=== PATIENT | female | born 1970 | race Caucasian/White ===

== ENCOUNTER 2018-09-09 22:55 | Emergency (ER) | payer OTHER, SELFPAY ==
[2018-09-09 23:06] VITALS: BP 192/105; PULSE 92; RESP 22; TEMP 36.7; O2SAT 98; BMI 42.9
[2018-09-09] MEDS: KETOROLAC 60 MG/2 ML VIAL IM (23:25)
[2018-09-10] MEDS: CYCLOBENZAPRINE 10 MG PREPACK 1 BOTTLE MISC (01:08)
[2018-09-10 01:09] VITALS: BP 164/82; PULSE 88; RESP 16; O2SAT 98
--- NOTE | 2018-09-11 02:36 | ED.BACK ---
HPI - Back Pain/Injury General Chief Complaint: Back Pain/Injury Stated Complaint: BACK PAIN Time Seen by Provider: 09/09/18 23:02 Source: patient and family Mode of arrival: ambulatory Limitations: no limitations History of Present Illness HPI Narrative: 48-year-old female, nonsmoker presents with in the chief complaint of severe lumbar pain with radiation to her right lateral thigh. She denies any specific injury and states she has no history of back pain. She denies significant trauma nor fever or chills. She has had no trouble controlling bowel or bladder. She denies the use of IV drugs. Patient's pain is worse with motion and improves MD Complaint: back pain Onset (ago): hour(s) Duration: constant Similar Symptoms Previously: No Location: lumbar spine Severity: moderate Quality: burning and sharp Radiation: none Relieving factors: immobilization Exacerbating factors: movement Associated symptoms: denies other symptoms Related Data Previous Rx's Medication Instructions Recorded prednisone 20 mg tablet See Label Instructions PO .COMPLEX 03/16/18 #8 tab cyclobenzaprine 10 mg PO TID PRN #14 tab 09/10/18 ketorolac 10 mg PO Q6H PRN #14 tab 09/10/18 prednisone 20 mg PO DAILY #5 tab 09/10/18 Allergies Allergy/AdvReac Type Severity Reaction Status Date / Time No Known Drug Allergies Allergy Verified 09/09/18 23:09 Review of Systems Review of Systems All systems reviewed & are unremarkable except as noted in HPI and below Constitutional Denies chills, Denies fever(s), Denies lethargy and Denies weakness Eyes Denies change in vision, Denies eye discharge, Denies irritation and Denies loss of vision ENT Ears, Nose, Mouth, and Throat: Denies change in voice, Denies neck pain and Denies sore throat Cardiovascular Denies chest pain, Denies irregular heart rhythm, Denies lightheadedness, Denies palpitations, Denies dyspnea, Denies dyspnea on exertion and Denies orthopnea Respiratory Denies cough, Denies dyspnea, Denies dyspnea on exertion and Denies wheezing Gastrointestinal Gastrointestinal: Denies abdominal pain, Denies change in bowel habits, Denies diarrhea, Denies nausea and Denies vomiting Genitourinary Denies hematuria, Denies flank pain, Denies urinary incontinence and Denies urinary urgency Musculoskeletal Reports back pain and Denies neck pain Integumentary/Breasts Denies pruritus, Denies erythema, Denies rash and Denies wounds Neurologic Denies confusion, Denies loss of vision and Denies weakness Psychiatric Denies anxiety, Denies confusion, Denies depression, Denies homicidal ideation and Denies suicidal ideation Endocrine Denies palpitations Hematologic/Lymphatic Denies easy bruising Allergic/Immunologic Denies wheezing [facility] Medical History Menopausal syndrome (Chronic) Surgical History Status post delivery Social History Smoking Status: Never smoker Exam Narrative Exam Narrative: GENERAL: This is a well-nourished, well-developed patient, in mild distress. HEAD: 48-year-old female, obviously in significant pain, clutching her right lower back EYES: Pupils equal round and reactive. Extraocular motions intact. No scleral icterus. No injection or drainage. ENT: Nose without bleeding, purulent drainage or septal hematoma. Throat without erythema, tonsillar hypertrophy or exudate. Uvula midline. Airway patent. NECK: Trachea midline. No JVD or lymphadenopathy. Supple, nontender, no meningeal signs. CARDIOVASCULAR: Regular rate and rhythm without murmurs, gallops, or rubs. RESPIRATORY: Clear to auscultation. Breath sounds equal bilaterally. No wheezes, rales, or rhonchi. GASTROINTESTINAL: Abdomen soft, non-tender, nondistended. No hepato-splenomegaly, or palpable masses. No guarding. EXTREMITIES: No clubbing, cyanosis, or edema. No joint tenderness, effusion, or edema noted. NEURO: AOx3. SKIN: No rash or erythema. BACK: exhaust tender but free of any obvious external abnormalities. Patient exam notes decreased range of motion and muscle spasm, but no CVA tenderness, or vertebral point tenderness. There are no symptoms of cauda equina such as saddle anesthesia, and decreased reflexes, decreased sensation or strength. Initial Vital Signs Initial Vital Signs: Vital Signs Temperature 98.0 F 09/09/18 23:06 Pulse Rate 92 H 09/09/18 23:06 Respiratory Rate 22 09/09/18 23:06 Blood Pressure 192/105 H 09/09/18 23:06 Pulse Oximetry 98 09/09/18 23:06 Course Orders Ordered: Discontinued Medications Cyclobenzaprine HCl (Flexeril 10 Mg Prepack) 1 bottle MISC SEEINSTR ONE Stop: 09/10/18 00:50 Last Admin: 09/10/18 01:08 Dose: 1 bottle Ketorolac Tromethamine (Toradol) 60 mg IM NOW ONE Stop: 09/09/18 23:19 Last Admin: 09/09/18 23:25 Dose: 60 mg Discharge Plan Departure Patient Disposition: Home Clinical Impression: Acute lumbar radiculopathy Discharge Date/Time: 09/10/18 01:14 Interventions: ED Discharge Assessment Last Done: 09/10/18 01:09 Instructions: DI for Lumbar Radiculopathy Activity Restrictions/Additional Instructions: *You have been diagnosed with [ acute lumbar radiculopathy ] *What to do: *Take medications as directed: Prescriptions have an electronically transmitted to [facility] at your request *Follow up with your primary care provider in 2-3 days, call for an appointment. Let them know you were seen in the Emergency Department and that we ask that you be seen in follow up *Return to ER if you should have any new, worsening or concerning symptoms Prescriptions: New cyclobenzaprine 10 mg tablet 10 mg PO TID PRN (Reason: muscle spasm) Qty: 14 RF: 0 prednisone 20 mg tablet 20 mg PO DAILY Qty: 5 RF: 0 ketorolac 10 mg tablet 10 mg PO Q6H PRN (Reason: pain) Qty: 14 RF: 0 No Action prednisone 20 mg tablet See Label Instructions PO .COMPLEX Qty: 8 RF: 0
--- NOTE | 2018-09-11 02:39 | ED_ITS ---
HPI - Back Pain/Injury General Chief Complaint: Back Pain/Injury Stated Complaint: BACK PAIN Time Seen by Provider: 09/09/18 23:02 Source: patient and family Mode of arrival: ambulatory Limitations: no limitations History of Present Illness HPI Narrative: 48-year-old female, nonsmoker presents with in the chief complaint of severe lumbar pain with radiation to her right lateral thigh. She denies any specific injury and states she has no history of back pain. She denies significant trauma nor fever or chills. She has had no trouble controlling bowel or bladder. She denies the use of IV drugs. Patient's pain is worse with motion and improves MD Complaint: back pain Onset (ago): hour(s) Duration: constant Similar Symptoms Previously: No Location: lumbar spine Severity: moderate Quality: burning and sharp Radiation: none Relieving factors: immobilization Exacerbating factors: movement Associated symptoms: denies other symptoms Related Data Previous Rx's Medication Instructions Recorded prednisone 20 mg tablet See Label Instructions PO .COMPLEX 03/16/18 #8 tab cyclobenzaprine 10 mg PO TID PRN #14 tab 09/10/18 ketorolac 10 mg PO Q6H PRN #14 tab 09/10/18 prednisone 20 mg PO DAILY #5 tab 09/10/18 Allergies Allergy/AdvReac Type Severity Reaction Status Date / Time No Known Drug Allergies Allergy Verified 09/09/18 23:09 Review of Systems Review of Systems All systems reviewed & are unremarkable except as noted in HPI and below Constitutional Denies chills, Denies fever(s), Denies lethargy and Denies weakness Eyes Denies change in vision, Denies eye discharge, Denies irritation and Denies loss of vision ENT Ears, Nose, Mouth, and Throat: Denies change in voice, Denies neck pain and Denies sore throat Cardiovascular Denies chest pain, Denies irregular heart rhythm, Denies lightheadedness, Denies palpitations, Denies dyspnea, Denies dyspnea on exertion and Denies orthopnea Respiratory Denies cough, Denies dyspnea, Denies dyspnea on exertion and Denies wheezing Gastrointestinal Gastrointestinal: Denies abdominal pain, Denies change in bowel habits, Denies diarrhea, Denies nausea and Denies vomiting Genitourinary Denies hematuria, Denies flank pain, Denies urinary incontinence and Denies urinary urgency Musculoskeletal Reports back pain and Denies neck pain Integumentary/Breasts Denies pruritus, Denies erythema, Denies rash and Denies wounds Neurologic Denies confusion, Denies loss of vision and Denies weakness Psychiatric Denies anxiety, Denies confusion, Denies depression, Denies homicidal ideation and Denies suicidal ideation Endocrine Denies palpitations Hematologic/Lymphatic Denies easy bruising Allergic/Immunologic Denies wheezing [facility] Medical History Menopausal syndrome (Chronic) Surgical History Status post delivery Social History Smoking Status: Never smoker Exam Narrative Exam Narrative: GENERAL: This is a well-nourished, well-developed patient, in mild distress. HEAD: 48-year-old female, obviously in significant pain, clutching her right lower back EYES: Pupils equal round and reactive. Extraocular motions intact. No scleral icterus. No injection or drainage. ENT: Nose without bleeding, purulent drainage or septal hematoma. Throat without erythema, tonsillar hypertrophy or exudate. Uvula midline. Airway patent. NECK: Trachea midline. No JVD or lymphadenopathy. Supple, nontender, no meningeal signs. CARDIOVASCULAR: Regular rate and rhythm without murmurs, gallops, or rubs. RESPIRATORY: Clear to auscultation. Breath sounds equal bilaterally. No wheezes , rales, or rhonchi. GASTROINTESTINAL: Abdomen soft, non-tender, nondistended. No hepato-splenomegaly , or palpable masses. No guarding. EXTREMITIES: No clubbing, cyanosis, or edema. No joint tenderness, effusion, or edema noted. NEURO: AOx3. SKIN: No rash or erythema. BACK: fish cleaner machine tender but free of any obvious external abnormalities. Patient exam notes decreased range of motion and muscle spasm, but no CVA tenderness, or vertebral point tenderness. There are no symptoms of cauda equina such as saddle anesthesia, and decreased reflexes, decreased sensation or strength. Initial Vital Signs Initial Vital Signs: Vital Signs Temperature 98.0 F 09/09/18 23:06 Pulse Rate 92 H 09/09/18 23:06 Respiratory Rate 22 09/09/18 23:06 Blood Pressure 192/105 H 09/09/18 23:06 Pulse Oximetry 98 09/09/18 23:06 Course Orders Ordered: Discontinued Medications Cyclobenzaprine HCl (Flexeril 10 Mg Prepack) 1 bottle MISC SEEINSTR ONE Stop: 09/10/18 00:50 Last Admin: 09/10/18 01:08 Dose: 1 bottle Ketorolac Tromethamine (Toradol) 60 mg IM NOW ONE Stop: 09/09/18 23:19 Last Admin: 09/09/18 23:25 Dose: 60 mg Discharge Plan Departure Patient Disposition: Home Clinical Impression: Acute lumbar radiculopathy Discharge Date/Time: 09/10/18 01:14 Interventions: ED Discharge Assessment Last Done: 09/10/18 01:09 Instructions: DI for Lumbar Radiculopathy Activity Restrictions/Additional Instructions: *You have been diagnosed with [ acute lumbar radiculopathy ] *What to do: *Take medications as directed: Prescriptions have an electronically transmitted to [facility] at your request *Follow up with your primary care provider in 2-3 days, call for an appointment. Let them know you were seen in the Emergency Department and that we ask that you be seen in follow up *Return to ER if you should have any new, worsening or concerning symptoms Prescriptions: New cyclobenzaprine 10 mg tablet 10 mg PO TID PRN (Reason: muscle spasm) Qty: 14 RF: 0 prednisone 20 mg tablet 20 mg PO DAILY Qty: 5 RF: 0 ketorolac 10 mg tablet 10 mg PO Q6H PRN (Reason: pain) Qty: 14 RF: 0 No Action prednisone 20 mg tablet See Label Instructions PO .COMPLEX Qty: 8 RF: 0
== END 2018-09-10 01:14 | disposition home or self-care (01) ==
PROVIDERS: Emergency Provider Emergency Medicine; Family Provider Internal Medicine; PCP Internal Medicine
DX: M54.16 Radiculopathy, lumbar region (principal)
CPT/HCPCS: 96372; 99282; 99283; J1885

== ENCOUNTER → 2018-12-26 07:28 | Outpatient (CLI) | payer OTHER, SELFPAY ==
[2018-12-26 10:10] LABS: Alanine Aminotransferase 36 IU/L (9-52); Albumin 4.2 g/dL (3.5-5.0); Albumin Globulin Ratio 1.3 (1.0-2.8); Alkaline Phosphatase 68 U/L (38-126); Aspartate Aminotransferase 26 IU/L (14-36); BUN Creatinine Ratio 18.6 (6-22); Bilirubin Total 1.5 mg/dL (0.2-1.3); Blood Urea Nitrogen 13 mg/dL (7-17); Calcium 8.9 mg/dL (8.4-10.2); Carbon Dioxide 21 mmol/L (22-32); Chloride 103 mmol/L (98-107); Cholesterol 182 mg/dL (140-199); Estimated Glomerular Filt Rate > 60.0 mL/min (>60); Globulin 3.3 g/dL (1.7-4.1); Glucose 86 mg/dL (70-100); HDL Cholesterol 52 mg/dL (40-60); HEMOLYSIS 23 (0-50); LDL Cholesterol Calculated 115 mg/dL (<100); Potassium 3.7 mmol/L (3.4-5.1); Sodium 137 mmol/L (137-145); Total Protein 7.5 g/dL (6.3-8.2); Triglycerides 77 mg/dL (35-150)
[2018-12-26 10:29] LABS: TSH w/ Reflex to FT4 2.36 uIU/mL (0.47-4.68)
== END ==
PROVIDERS: Family Provider Internal Medicine; PCP Internal Medicine; Visit Provider Internal Medicine
DX: I10 Essential (primary) hypertension (principal)
CPT/HCPCS: 36415; 80053; 80061; 84443

== ENCOUNTER → 2018-12-27 10:51 | Outpatient (CLI) | payer OTHER, SELFPAY ==
--- NOTE | 2018-12-27 | DI.MG.S_ITS ---
BILATERAL DIGITAL SCREENING MAMMOGRAM 3D/2D WITH CAD: 12/27/2018 CLINICAL: Routine screening. Family history of breast cancer. Comparison is made to exams dated: 12/08/2017 mammogram, 11/15/2016 mammogram, 11/12/2015 mammogram, 10/31/2013 mammogram, 11/07/2013 mammogram, and 11/11/2014 mammogram - [facility]. There are scattered fibroglandular elements in both breasts. Current study was also evaluated with a Computer Aided Detection (CAD) system. No significant masses, calcifications, or other findings are seen in either breast. There has been no significant interval change. IMPRESSION: NEGATIVE There is no mammographic evidence of malignancy. A 1 year screening mammogram is recommended. This exam was interpreted at Station ID: [id number]. NOTE: For mammograms, a report in lay terms will be sent to the patient. Approximately 15% of breast malignancies will not be visualized mammographically. In the management of a palpable breast mass, a negative mammogram must not discourage biopsy of a clinically suspicious lesion. Electronically Signed By: Mart lou/annabel:12/27/2018 14:17:17 letter sent: Normal Exam ACR BI-RADS Category 1: Negative [id number]
== END ==
PROVIDERS: Family Provider Internal Medicine; PCP Internal Medicine; Visit Provider Internal Medicine
DX: Z12.31 Encounter for screening mammogram for malignant neoplasm of breast (principal); Z80.3 Family history of malignant neoplasm of breast
CPT/HCPCS: 77063; 77067

== ENCOUNTER → 2019-12-31 07:49 | Outpatient (CLI) | payer OTHER, SELFPAY ==
--- NOTE | 2019-12-31 | DI.MG.S_ITS ---
BILATERAL DIGITAL SCREENING MAMMOGRAM 3D/2D WITH CAD: 12/31/2019 CLINICAL: Family history of breast cancer. Routine screening. Comparison is made to exams dated: 12/27/2018 mammogram, 12/08/2017 mammogram, and 11/15/2016 mammogram - [facility]. There are scattered fibroglandular elements in both breasts. Current study was also evaluated with a Computer Aided Detection (CAD) system. No significant masses, calcifications, or other findings are seen in either breast. There has been no significant interval change. IMPRESSION: NEGATIVE There is no mammographic evidence of malignancy. A 1 year screening mammogram is recommended. This exam was interpreted at Station ID: [id number]. NOTE: For mammograms, a report in lay terms will be sent to the patient. Approximately 15% of breast malignancies will not be visualized mammographically. In the management of a palpable breast mass, a negative mammogram must not discourage biopsy of a clinically suspicious lesion. Electronically Signed By: Vicki garcia/annabel:12/31/2019 14:08:11 letter sent: Normal Exam ACR BI-RADS Category 1: Negative [id number]
== END ==
PROVIDERS: Family Provider Internal Medicine; PCP Internal Medicine; Referring Provider Internal Medicine; Visit Provider Internal Medicine
DX: Z12.31 Encounter for screening mammogram for malignant neoplasm of breast (principal); Z80.3 Family history of malignant neoplasm of breast
CPT/HCPCS: 77063; 77067

== ENCOUNTER 2020-02-20 06:19 | Emergency (ER) | payer OTHER, SELFPAY ==
--- NOTE | 2020-02-20 06:28 | DI.RAD.S_ITS ---
PROCEDURE: XR WRIST RT MIN 3V INDICATIONS: right wrist pain, swelling, injury TECHNIQUE: 4 views of the wrist were acquired. COMPARISON: None. FINDINGS: Bones: A chronic appearing deformity of the fifth metacarpal shaft. Marginal lucency seen at the PIP joint of the ring finger. First CMC and triscaphe joint degeneration. Marginal lucencies also seen involving the second and third metacarpal heads, potentially the fifth metacarpal head. Soft tissues: No suspicious soft tissue calcifications. IMPRESSION: No fracturee Chronic findings as above Dictated by: Joe Rachel M.D. on 02/20/2020 at 10:07 Approved by: Joe Rachel M.D. on 02/20/2020 at 10:10
[2020-02-20 06:30] VITALS: BP 150/98; PULSE 75; RESP 15; TEMP 36.3; O2SAT 95; BMI 43.4
--- NOTE | 2020-02-20 06:38 | ED_ITS ---
HPI - Extremity Problem General Chief complaint: Extremity Injury, Upper Stated complaint: right wrist/hand swelling/pain popped 2 days ago Time Seen by Provider: 02/20/20 06:20 Source: patient Mode of arrival: Ambulatory Limitations: no limitations History of Present Illness HPI Narrative: Nonsmoker with history of hypertension presents with a chief complaint of an injury to her right wrist yesterday while bending over at work and lifting heavy object. She felt a pop on the medial aspect of her wrist overlying her distal radius and extending into her thumb. She has full but painful range of motion and denies any numbness, tingling or weakness. She has no history of injury to this wrist. She denies any high velocity injury or trauma. She denies any elbow or shoulder pain MD Complaint: extremity pain Onset (ago): day(s) Related Data Previous Rx's Medication Instructions Recorded lisinopril 20 mg tablet See Rx Instructions .ROUTE 09/17/19 .COMPLEX #90 tab Allergies Allergy/AdvReac Type Severity Reaction Status Date / Time No Known Drug Allergies Allergy Verified 12/11/19 15:18 Review of Systems Constitutional Constitutional: Denies chills, Denies fatigue, Denies fever(s), Denies frequent falls, Denies lethargy and Denies weakness Eyes Eyes: Denies change in vision, Denies eye discharge, Denies irritation and Denies loss of vision ENT Ears, Nose, Mouth, and Throat: Denies change in voice, Denies dizziness, Denies neck pain, Denies sore throat and Denies throat swelling Cardiovascular Cardiovascular: Denies chest pain, Denies irregular heart rhythm, Denies lightheadedness, Denies palpitations, Denies dyspnea, Denies dyspnea on exertion and Denies orthopnea Respiratory Respiratory: Denies cough, Denies dyspnea, Denies dyspnea on exertion and Denies wheezing Gastrointestinal Gastrointestinal: Denies abdominal pain, Denies change in bowel habits, Denies diarrhea, Denies nausea and Denies vomiting Genitourinary Genitourinary: Denies hematuria, Denies flank pain, Denies urinary incontinence and Denies urinary urgency Musculoskeletal Musculoskeletal: Denies back pain, Reports limited range of motion, Denies muscle weakness, Denies neck pain, Denies numbness and Denies tingling Integumentary/Breasts Skin/Breast: Denies pruritus, Denies erythema, Denies rash and Denies wounds Neurologic Neurologic: Denies behavioral changes, Denies confusion, Denies dizziness, Denies frequent falls, Denies loss of vision, Denies numbness, Denies tingling and Denies weakness Psychiatric Psychiatric: Denies anxiety, Denies behavioral changes, Denies confusion, Denies depression, Denies homicidal ideation and Denies suicidal ideation Endocrine Endocrine: Denies fatigue, Denies flushing and Denies palpitations Hematologic/Lymphatic Hematologic/Lymphatic: Denies easy bruising Allergic/Immunologic Allergic/Immunologic: Denies urticaria, Denies throat swelling and Denies wheezing Patient History Medical History Essential hypertension (Chronic) Gilbert syndrome (Inactive) Menopausal syndrome (Chronic) Surgical History Status post delivery Social History Smoking Status: Never smoker Smoking Status: Never smoker Substance Use Type: does not use Exam Narrative Exam Narrative: GEN: AOx3 and in mild distress EYES: Pupils are equal, round, and reactive to light and accommodation. Extraoccular muscles are intact bilaterally. There is no subconjunctival hemorrhage or exudate. CHEST: Lungs are clear to auscultation bilaterally and free of wheezes, rales, or rhonchi. Heart rate is regular rhythm, there are no murmurs, clicks, rubs, or gallops. There is no chest wall tenderness. ABD: Abdomen is soft and nontender. There is no guarding or rebound. Bowel s ounds are normal in all 4 quadrants. There is no mass or organomegaly. EXT: Decreased range of motion secondary to pain of the right wrist, largely over the lateral aspect of her distal radius. No obvious deformity. This is closed, isolated and neurovascularly intact. She does have full strength and sensation with cap refill less 2 seconds. Full painless ROM of all extremities with no loss of sensation or strength. SKIN: Warm, pink, and dry. No erythema or rash Initial Vital Signs Initial Vital Signs: Vital Signs Temperature 97.4 F L 02/20/20 06:30 Pulse Rate 75 02/20/20 06:30 Respiratory Rate 15 02/20/20 06:30 Blood Pressure 150/98 H 02/20/20 06:30 Pulse Oximetry 95 05/06/20 06:30 Procedures Orthopedic Splinting/Casting Injury #1: Side: right Upper Extremity Injury Location: wrist Upper Extremity Immobilizer: wrist splint and thumb spica Post splinting neuro exam: intact Post splinting vascular exam: intact Placed by: Nursing Course Orders Ordered: ED Orders 02/20/20 06:28 XR wrist RT min 3V Stat Vital Signs Vital signs: Vital Signs - 8 hr 02/20/20 06:30 Temperature 97.4 F L Pulse Rate 75 Respiratory Rate 15 Blood Pressure 150/98 H Pulse Oximetry 95 MDM - Extremity (Nontraumatic) Imaging Data Extremity x-ray #1: Attestation: I personally reviewed and interpreted this imaging study as follows: My Impression: No Fx or dislocation Discharge Plan Departure Patient Disposition: Home Clinical Impression: Sprain and strain of wrist Instructions: DI for Wrist Sprain Activity Restrictions/Additional Instructions: *You have been diagnosed with [right wrist sprain] *What to do: *Take medications as directed *Follow up with your primary care provider in 2-3 days, call for an appointment. Let them know you were seen in the Emergency Department and that we ask that you be seen in follow up *Return to ER if you should have any new, worsening or concerning symptoms Radiographic study has been interpreted by an emergency physician. The official diagnosis by radiology will be performed within the next 24 hours and should there be any change in outcome we will notify you of how to proceed. Prescriptions: No Action lisinopril 20 mg tablet See Rx Instructions .ROUTE .COMPLEX Qty: 90 RF: 1 Referrals: Francisco Tran MD [Primary Care Provider] -
== END 2020-02-20 07:05 | disposition home or self-care (01) ==
PROVIDERS: Emergency Provider Emergency Medicine; Family Provider Internal Medicine; PCP Internal Medicine
DX: S63.501A Unspecified sprain of right wrist, initial encounter (principal); S66.911A Strain of unspecified muscle, fascia and tendon at wrist and hand level, right hand, initial encounter; X50.0XXA Overexertion from strenuous movement or load, initial encounter
CPT/HCPCS: 73110; 99282; 99283

== ENCOUNTER → 2020-08-16 08:26 | Outpatient (CLI) | payer OTHER, SELFPAY ==
--- NOTE | 2020-08-16 08:27 | DI.RAD.S_ITS ---
PROCEDURE: XR HAND LT MIN 3V INDICATIONS: L base of thumb pain post fall TECHNIQUE: 3 views of the hand(s) acquired. COMPARISON: None. FINDINGS: Bones: No definite, displaced fractures or dislocations. Mild irregularity can be seen involving the trapezium. Carpal bones are normally aligned. No suspicious bony lesions. Soft tissues: No suspicious soft tissue calcifications. IMPRESSION: No definite, displaced fractures are identified. Mild irregularity can be seen involving the trapezium. If there is focal tenderness at this site in this patient with this given history ( or other suspicion for an acute fracture not seen on these plain films) then please consider a dedicated CT study for further evaluation. Dictated by: Jorge Joseph M.D. on 08/16/2020 at 7:46 Approved by: Jorge Joseph M.D. on 08/16/2020 at 7:49
== END ==
PROVIDERS: Family Provider Internal Medicine; PCP Internal Medicine; Referring Provider Nurse Practitioner; Visit Provider Nurse Practitioner
DX: M79.642 Pain in left hand (principal)
CPT/HCPCS: 73130

== ENCOUNTER 2021-09-20 18:02 | Emergency (ER) | payer OTHER, SELFPAY ==
[2021-09-20 18:20] VITALS: BP 174/99; PULSE 85; RESP 19; TEMP 37; O2SAT 98; BMI 43.4
--- NOTE | 2021-09-20 18:26 | DI.RAD.S_ITS ---
PROCEDURE: XR ANKLE RT MIN 3V INDICATIONS: fall TECHNIQUE: 3 views of the ankle were acquired. COMPARISON: [facility], CR, FOOT 3V RIGHT, 01/21/2010, 12:49. FINDINGS: Bones: No fractures or dislocations. Again noted is surgical hardware related to 1st and 2nd toe surgeries as well as a chronic plantar metallic foreign body. Ankle mortise is normally aligned. No suspicious bony lesions. Soft tissues: No tibiotalar joint effusion. Achilles tendon appears normal. Chronic plantar metallic foreign body, present since 2009. Lateral soft tissue swelling. IMPRESSION: Lateral ankle sprain. No evidence acute bony abnormality of the right ankle. Right foot orthopedic hardware. Chronic plantar midfoot metallic foreign body. Dictated by: Kiran Berry M.D. on 09/20/2021 at 18:57 Approved by: Kiran Berry M.D. on 09/20/2021 at 18:59
--- NOTE | 2021-09-20 18:40 | DI.CT.S_ITS ---
PROCEDURE: CT LE RT WO CON INDICATIONS: ankle pain, talus injury TECHNIQUE: Noncontrast 1-1.5 mm axial sections acquired from above the tibiotalar joint to the bottom of the calcaneus, with coronal and sagittal reformats. COMPARISON: [facility], CR, XR ANKLE RT MIN 3V, 09/20/2021, 18:19. [facility], CR, FOOT 3V RIGHT, 01/21/2010, 12:49. FINDINGS: Image quality: Excellent. Bones: There is no identified acute fracture involving the talus. There is mild degenerative change present at the tibiotalar joint. Findings include subchondral cyst formation in the talus. No other acute fractures are seen. Orthopedic hardware is noted involving the proximal phalanx of the great toe as well as fusion hardware involving the 2nd toe. A metallic needle has been present in the plantar tissues at the midfoot for an extended period of time period Soft tissues: Metallic needle in the plantar tissues, a chronic finding. IMPRESSION: No evidence of acute fracture involving the talus or other ankle bone. Mild degenerative change at the ankle. Chronic foreign body in the plantar tissues of the foot. Comment: If the patient continues to have pain symptomatology, consider ankle MRI. Dictated by: Kiran Berry M.D. on 09/20/2021 at 19:23 Approved by: Kiran Berry M.D. on 09/20/2021 at 19:26
--- NOTE | 2021-09-20 20:00 | ED.LOWEXIN ---
HPI - Extremity Injury (Lower) General Chief Complaint: Extremity Injury, Lower Stated Complaint: RT ANKLE INJURY Time Seen by Provider: 09/20/21 18:14 Source: patient Mode of arrival: Family Vehicle Limitations: no limitations History of Present Illness HPI Narrative: 51-year-old female nonsmoker presents with a chief complaint of right foot and ankle pain after stepping awkwardly off the bottom stair a few days ago. She has been ambulating with an antalgic gait for the past few days and came today for evaluation to make sure there was no significant underlying injury. When she fell it was purely mechanical, she denies prodromal symptoms such as dizziness, weakness or lightheadedness. She denies any head, neck or back pain. She denies any chest pain or shortness of breath. She has pain in her ankle with ambulation and improvement with rest. She does admit to some swelling over her lateral ankle. It is closed, isolated and neurovascularly intact Related Data Previous Rx's Medication Instructions Recorded albuterol sulfate 90 mcg/actuation 2 puff INHALATION Q4-6H PRN #8.5 06/15/20 aerosol inhaler gram benzonatate 100 mg capsule 100 mg PO BID PRN #30 cap 06/15/20 (Tessalneftaly Alfaro) Allergies Allergy/AdvReac Type Severity Reaction Status Date / Time No Known Drug Allergies Allergy Verified 09/20/21 18:20 Review of Systems Review of Systems Narrative: GENERAL: Denies chills, fatigue, malaise, fever, sweats. HEENT: Denies sinus pain, ear pain, sore throat, difficulty swallowing, dizziness. RESPIRATORY: Denies dyspnea, cough, wheezing, hemoptysis, sputum. CARDIOVASCULAR: Denies chest pain, palpitations, orthopnea, edema, GASTROINTESTINAL: Denies nausea, vomiting, abdominal pain, diarrhea, constipation, melena. : Denies dysuria, frequency, incontinence, hematuria, urinary retention. MUSCULOSKELETAL: See HPI SKIN: Denies rash, skin lesions, or other NEUROLOGIC: Denies weakness, headache, numbness, change in speech, confusion, seizures, incoordination. PSYCHIATRIC: No concerning psychosocial issues. 12 point review of systems is negative except for those stated above Patient History Medical History Bronchitis Essential hypertension Gilbert syndrome Menopausal syndrome Surgical History Status post delivery Social History Smoking Status: Never smoker Smoking Status: Never smoker alcohol intake frequency: holidays/special occasions only Substance Use Type: does not use Exam Narrative Exam Narrative: GEN: AOx3 and in mild distress EYES: Pupils are equal, round, and reactive to light and accommodation. Extraoccular muscles are intact bilaterally. There is no subconjunctival hemorrhage or exudate. CHEST: Lungs are clear to auscultation bilaterally and free of wheezes, rales, or rhonchi. Heart rate is regular rhythm, there are no murmurs, clicks, rubs, or gallops. There is no chest wall tenderness. ABD: Abdomen is soft and nontender. There is no guarding or rebound. Bowel sounds are normal in all 4 quadrants. There is no mass or organomegaly. EXT: Full but painful range of motion at right ankle with swelling over the lateral malleolus. There is tenderness to palpation over the anterior ankle. No obvious, significant deformity. Closed, isolated neurovascularly intact SKIN: Warm, pink, and dry. No erythema or rash Initial Vital Signs Initial Vital Signs: Vital Signs Temperature 98.6 F 09/20/21 18:20 Pulse Rate 85 09/20/21 18:20 Respiratory Rate 19 09/20/21 18:20 Blood Pressure 174/99 H 09/20/21 18:20 Pulse Oximetry 98 09/20/21 18:20 Course Orders Ordered: ED Orders 09/20/21 18:26 XR ankle RT min 3V Stat 09/20/21 18:40 CT LE RT wo con Stat Vital Signs Vital signs: Vital Signs - 8 hr 09/20/21 18:20 Temperature 98.6 F Pulse Rate 85 Respiratory Rate 19 Blood Pressure 174/99 H Pulse Oximetry 98 MDM - Extremity Injury (Lower) Imaging Data Extremity x-ray #1: Radiologist's Impression: Anastasiia Bobby??51??F??1970 ? Allergy/Adv: No Known Drug Allergies (More??) Close Lower Extremity CT (Signed) Kiran Berry - 09/20/21 Ankle X-Ray (Signed) Kiran Berry - 09/20/21 Hand X-Ray (Signed) Jorge Joseph - 08/16/20 Wrist X-Ray (Signed) WilsonJoe - 02/20/20 Mammogram Screening (Signed) Vicki Murillo - 12/31/19 Mammogram Screening (Addendum) Mart Donnelly - 12/27/18 Launch?[address] [address] XRay Report Signed Patient: Anastasiia Bobby MR#: [id number] : 1970 Acct:[id number] Age/Sex: 51 / F Date of Service: 09/20/21 Loc: ED Accession Number: [id number] ?? Procedure: XR ankle RT min 3V Ordering Provider: Rajiv Garcia D.O. PROCEDURE:? XR ANKLE RT MIN 3V ? INDICATIONS:? fall ? TECHNIQUE:? 3 views of the ankle were acquired.? ? COMPARISON:[facility], , FOOT 3V RIGHT, 01/21/2010, 12:49. ? FINDINGS:? ? Bones:? No fractures or dislocations.? Again noted is surgical hardware related to 1st and 2nd toe surgeries as well as a chronic plantar metallic foreign body.? Ankle mortise is normally aligned.? No suspicious bony lesions.? ? Soft tissues:? No tibiotalar joint effusion.? Achilles tendon appears normal.? Chronic plantar metallic foreign body, present since 2009. Lateral soft tissue swelling. ? ? IMPRESSION:? Lateral ankle sprain.? No evidence acute bony abnormality of the right ankle.? Right foot orthopedic hardware.? Chronic plantar midfoot metallic foreign body. ? Dictated by: Kiran Berry M.D. on 09/20/2021 at 18:57 ? ? Approved by: Kiran Berry M.D. on 09/20/2021 at 18:59? CT LE: Radiologist's Impression: Launch?[address] [address] [address] Scan Report Signed Patient: Anastasiia Bobby MR#: [id number] : 1970 Acct:[id number] Age/Sex: 51 / F Date of Service: 09/20/21 Loc: ED Accession Number: [id number] ?? Procedure: CT LE RT wo con Ordering Provider: Rajiv Garcia D.O. PROCEDURE:? CT LE RT WO CON ? INDICATIONS:? ankle pain, talus injury ? TECHNIQUE:? Noncontrast 1-1.5 mm axial sections acquired from above the tibiotalar joint to the bottom of the calcaneus, with coronal and sagittal reformats.? ? COMPARISON:? [facility], CR, XR ANKLE RT MIN 3V, 09/20/2021, 18:19.? [facility], CR, FOOT 3V RIGHT, 01/21/2010, 12:49. ? FINDINGS:? Image quality:? Excellent.? ? Bones:? There is no identified acute fracture involving the talus.? There is mild degenerative change present at the tibiotalar joint.? Findings include subchondral cyst formation in the talus.? No other acute fractures are seen.? Orthopedic hardware is noted involving the proximal phalanx of the great toe as well as fusion hardware involving the 2nd toe.? A metallic needle has been present in the plantar tissues at the midfoot for an extended period of time period ? Soft tissues:? Metallic needle in the plantar tissues, a chronic finding. ? IMPRESSION:? No evidence of acute fracture involving the talus or other ankle bone.? Mild degenerative change at the ankle.? Chronic foreign body in the plantar tissues of the foot. ? Comment:? If the patient continues to have pain symptomatology, consider ankle MRI. ? ? Dictated by: Kiran Berry M.D. on 09/20/2021 at 19:23 ? ? Approved by: Kiran Berry M.D. on 09/20/2021 at 19:26 ? MDM Narrative Medical decision making narrative: Patient has reassuring history and physical exam. Continues to have antalgic gait and swelling over lateral ankle after a fall a few days ago. X-ray read as normal but questionable cortical irregularity of talus along with presence of hardware in her foot required CT scan for further evaluation. Thankfully, this was unremarkable no fracture or dislocation noted. Pain is well controlled, return precautions given and questions answered to her apparent satisfaction Discharge Plan Departure Patient Disposition: Home Clinical Impression: Ankle sprain Instructions: Ankle Sprain Activity Restrictions/Additional Instructions: *You have been diagnosed with [right ankle sprain, x-ray and CT scan are very reassuring and have no evidence to suggest fracture or dislocation. *What to do: *Please continue to take your regular medications as directed. [ ] New medication prescriptions sent to your pharmacy: [ ] [ ] New medication written as a paper prescription [x ] No new medications given *Please follow up with your primary care provider in 2-3 days, call for an appointment. Let them know you were seen in the Emergency Department and that we ask that you be seen in follow up. We will electronically transmit a record of today's note if your PCP is in our system *If you do not have a primary care provider please contact the [facility] Resource line at [phone]. They will ask some questions about your medical history and help get you set up with a doctor in the community. *Return to Emergency Department if you should have any new, worsening or concerning symptoms, such as [fever greater than 101 F, shaking chills, worsening pain, persistent vomiting or other bothersome symptoms] Prescriptions: No Action benzonatate [Tessalon Perles] 100 mg capsule 100 mg PO BID PRN (Reason: cough) Qty: 30 0RF albuterol sulfate 90 mcg/actuation HFA aerosol inhaler 2 puff INHALATION Q4-6H PRN (Reason: bronchospasm) Qty: 8.5 0RF Referrals: Francisco Tran MD [Primary Care Provider] -
== END 2021-09-20 20:15 | disposition home or self-care (01) ==
PROVIDERS: Emergency Provider Emergency Medicine; Family Provider Internal Medicine; PCP Internal Medicine
DX: S93.401A Sprain of unspecified ligament of right ankle, initial encounter (principal); X50.1XXA Overexertion from prolonged static or awkward postures, initial encounter
CPT/HCPCS: 73610; 73700; 99283; 99284

== ENCOUNTER → 2022-02-12 11:13 | Outpatient (CLI) | payer OTHER, SELFPAY ==
--- NOTE | 2022-02-12 11:16 | DI.MG.S_ITS ---
BILATERAL DIGITAL SCREENING MAMMOGRAM 3D/2D WITH CAD: 02/12/2022 CLINICAL: Routine screening. Family history of breast cancer. Comparison is made to exams dated: 12/31/2019 mammogram, 12/27/2018 mammogram, and 12/08/2017 mammogram - [facility]. There are scattered fibroglandular elements in both breasts. Current study was also evaluated with a Computer Aided Detection (CAD) system. No significant masses, calcifications, or other findings are seen in either breast. There has been no significant interval change. IMPRESSION: NEGATIVE There is no mammographic evidence of malignancy. A 1 year screening mammogram is recommended. This exam was interpreted at Station ID: [id number]. NOTE: For mammograms, a report in lay terms will be sent to the patient. Approximately 15% of breast malignancies will not be visualized mammographically. In the management of a palpable breast mass, a negative mammogram must not discourage biopsy of a clinically suspicious lesion. Electronically Signed By: Vicki garcia/annabel:02/12/2022 12:42:29 letter sent: Normal Exam ACR BI-RADS Category 1: Negative 3341F
== END ==
PROVIDERS: Family Provider Internal Medicine; PCP Internal Medicine; Referring Provider Internal Medicine; Visit Provider Internal Medicine
DX: Z12.31 Encounter for screening mammogram for malignant neoplasm of breast (principal); Z80.3 Family history of malignant neoplasm of breast
CPT/HCPCS: 77063; 77067

== ENCOUNTER → 2022-06-18 07:23 | Outpatient (CLI) | payer OTHER, SELFPAY ==
[2022-06-18 09:50] LABS: Alanine Aminotransferase 28 IU/L (<35); Albumin Globulin Ratio 1.4 (1.0-2.8); Alkaline Phosphatase 52 U/L (38-126); Aspartate Aminotransferase 23 IU/L (14-36); BUN Creatinine Ratio 19.7 (6-22); Bilirubin Total 1.3 mg/dL (0.2-1.3); Blood Urea Nitrogen 15 mg/dL (7-17); Calcium 8.8 mg/dL (8.4-10.2); Carbon Dioxide 23 mmol/L (22-32); Chloride 107 mmol/L (98-107); Cholesterol 180 mg/dL (140-199); Estimated Glomerular Filt Rate > 60 mL/min (>60); Globulin 2.9 g/dL (1.7-4.1); Glucose 105 mg/dL (70-100); HDL Cholesterol 56 mg/dL (40-60); HEMOLYSIS 16 (0-50); LDL Cholesterol Calculated 113 mg/dL (<100); Potassium 4.2 mmol/L (3.4-5.1); Sodium 136 mmol/L (137-145); Total Protein 6.9 g/dL (6.3-8.2); Triglycerides 53 mg/dL (35-150)
[2022-06-18 10:12] LABS: TSH w/ Reflex to FT4 1.22 uIU/mL (0.47-4.68)
== END ==
PROVIDERS: Family Provider Internal Medicine; PCP Internal Medicine; Referring Provider Internal Medicine; Visit Provider Internal Medicine
DX: E80.4 Gilbert syndrome (principal); I10 Essential (primary) hypertension
CPT/HCPCS: 36415; 80053; 80061; 84443

== ENCOUNTER 2022-06-18 23:41 | Emergency (ER) | payer OTHER, SELFPAY ==
--- NOTE | 2022-06-18 23:54 | ED.UPPEXIN ---
HPI - Extremity Injury (Upper) General Chief Complaint: Wound/Laceration Stated Complaint: RT. thumb laceration Time Seen by Provider: 06/18/22 23:51 History of Present Illness HPI narrative: 52-year-old female nonsmoker with history of hypertension presents for evaluation of an accidental laceration to her right thumb. She was preparing a meal earlier today and lacerated it on a mandolin. She perform self-care for multiple hours due to social reasons and presents now for evaluation. She states that she finally was able to get the bleeding to stop but is certainly needs to be repaired. She states her tetanus will need to be updated today. She denies any numbness, tingling or weakness. She is not dizzy, weak or lightheaded. She denies any fever, chills nor nausea or vomiting. She has no chest pain or shortness of breath. She denies other injury and is otherwise well and free of complaint Related Data Previous Rx's Medication Instructions Recorded albuterol sulfate 90 mcg/actuation 2 puff inhalation Q4-6H PRN 06/15/20 aerosol inhaler bronchospasm #8.5 grams benzonatate 100 mg capsule 100 mg PO BID PRN cough #30 caps 06/15/20 (Tessalon Angelina) lisinopril 20 mg tablet 20 mg PO DAILY #30 tabs 04/30/22 Allergies Allergy/AdvReac Type Severity Reaction Status Date / Time No Known Drug Allergies Allergy Verified 06/17/22 14:51 Review of Systems Review of Systems Narrative: GENERAL: Denies chills, fatigue, malaise, fever, sweats. HEENT: Denies sinus pain, ear pain, sore throat, difficulty swallowing, dizziness. RESPIRATORY: Denies dyspnea, cough, wheezing, hemoptysis, sputum. CARDIOVASCULAR: Denies chest pain, palpitations, orthopnea, edema, GASTROINTESTINAL: Denies nausea, vomiting, abdominal pain, diarrhea, constipation, melena. : Denies dysuria, frequency, incontinence, hematuria, urinary retention. MUSCULOSKELETAL: See HPI SKIN: Denies rash, skin lesions, or other NEUROLOGIC: Denies weakness, headache, numbness, change in speech, confusion, seizures, incoordination. PSYCHIATRIC: No concerning psychosocial issues. 12 point review of systems is negative except for those stated above Patient History Medical History Essential hypertension Gilbert syndrome Menopausal syndrome Surgical History Status post delivery Social History Smoking Status: Never smoker Smoking Status: Never smoker alcohol intake frequency: holidays/special occasions only Substance Use Type: does not use Exam Narrative Exam Narrative: GEN: AOx3 and in mild distress EYES: Pupils are equal, round, and reactive to light and accommodation. Extraoccular muscles are intact bilaterally. There is no subconjunctival hemorrhage or exudate. CHEST: Lungs are clear to auscultation bilaterally and free of wheezes, rales, or rhonchi. Heart rate is regular rhythm, there are no murmurs, clicks, rubs, or gallops. There is no chest wall tenderness. ABD: Abdomen is soft and nontender. There is no guarding or rebound. Bowel sounds are normal in all 4 quadrants. There is no mass or organomegaly. EXT: 1.5 cm crescent Jeff laceration of the tip of the thumb with a very small amount of nail involved. Bleeding controlled, no evidence of foreign body, no bone exposed. This is isolated and neurovascularly intact Full painless ROM of all extremities with no loss of sensation or strength. SKIN: Warm, pink, and dry. No erythema or rash Initial Vital Signs Initial Vital Signs: Vital Signs Temperature 98 F 06/18/22 23:57 Pulse Rate 84 06/18/22 23:57 Respiratory Rate 18 06/18/22 23:57 Blood Pressure 141/72 H 06/18/22 23:57 Pulse Oximetry 93 06/18/22 23:57 Oxygen Delivery Method 06/18/22 23:57 Procedures Laceration Repair Laceration 1: Site: hand Side (If applicable): right Size (cm): 1.5 Description: flap and clean Depth: simple, single layer Pre-repair: wound explored, irrigated extensively and cleansed with chlorhexadine Skin layer closed with: nylon Skin layer suture size: 5-0 Number of sutures: 4 Technique: simple, interrupted Nerve Block Nerve Block 1: Time out performed: Yes Local Anesthetic: bupivacaine 0.5% Amount of anesthesia used (mL): 4 Side: right Nerve Blocks: digital Procedure Successful: Yes Patient Tolerated Procedure: Well Complications: none Course Orders Ordered: Discontinued Medications Bupivacaine HCl (Bupivacaine 0.5% (Pf) Vial) 5 ml SUBCUT NOW ONE Stop: 06/18/22 23:52 Last Admin: 06/19/22 01:37 Dose: 5 ml Documented By: BRISA Diphtheria/Tetanus/Acell Pertussis (Tet,Diph,Pertuss(Acell),Vac/Pf 0.5 Ml Syringe) 0.5 ml IM .ONCE ONE Stop: 06/18/22 23:52 Last Admin: 06/19/22 00:20 Dose: 0.5 ml Documented By: BRISA Discharge Plan Departure Patient Disposition: Home Clinical Impression: Laceration of right thumb Instructions: DI for Laceration Repair Activity Restrictions/Additional Instructions: *You have been diagnosed with [right thumb laceration] *What to do: *Please continue to take your regular medications as directed. Please keep the wound clean and dry to the best of your ability. Please monitor for signs of infection such as redness to the skin or increasing pain. Have the sutures/eriberto removed by your doctor in about 10-14 days. If you are unable to get into your doctor, we would be happy to remove the sutures/eriberto in that same timeframe. *Return to Emergency Department if you should have any new, worsening or concerning symptoms Prescriptions: No Action benzonatate [Tessalon Perles] 100 mg capsule 100 mg PO BID PRN (Reason: cough) Qty: 30 0RF albuterol sulfate 90 mcg/actuation HFA aerosol inhaler 2 puff INHALATION Q4-6H PRN (Reason: bronchospasm) Qty: 8.5 0RF lisinopril 20 mg tablet 20 mg PO DAILY Qty: 30 0RF Referrals: Francisco Tran MD [Primary Care Provider] - Visit Report Forms: Patient Portal/API
[2022-06-18 23:57] VITALS: BP 141/72; PULSE 84; RESP 18; TEMP 36.6; O2SAT 93; BMI 42.9
[2022-06-19] MEDS: TET,DIPH,PERTUSS(ACELL),VAC/PF 0.5 ML SYRINGE IM (00:20)
[2022-06-19] MEDS: BUPIVACAINE 0.5% (PF) VIAL 5 ML SUBCUT (01:37)
== END 2022-06-19 01:48 | disposition home or self-care (01) ==
PROVIDERS: Emergency Provider Emergency Medicine; Family Provider Internal Medicine; PCP Internal Medicine
DX: S61.011A Laceration without foreign body of right thumb without damage to nail, initial encounter (principal); W26.0XXA Contact with knife, initial encounter; Z23 Encounter for immunization; E80.4 Gilbert syndrome; I10 Essential (primary) hypertension
CPT/HCPCS: 12001; 36415; 64450; 80053; 80061; 84443; 90471; 99283; 90715

== ENCOUNTER → 2023-02-17 16:02 | Outpatient (CLI) | payer OTHER, SELFPAY ==
--- NOTE | 2023-02-17 | DI.MG.S_ITS ---
BILATERAL DIGITAL SCREENING MAMMOGRAM 3D/2D WITH CAD: 02/17/2023 CLINICAL: Routine screening. Family history of breast cancer. Comparison is made to exams dated: 02/12/2022 mammogram, 12/31/2019 mammogram, and 12/27/2018 mammogram - [facility]. There are scattered areas of fibroglandular density in both breasts (category b / 25%-50% glandular tissue). Current study was also evaluated with a Computer Aided Detection (CAD) system. No significant masses, calcifications, or other findings are seen in either breast. There has been no significant interval change. IMPRESSION: NEGATIVE There is no mammographic evidence of malignancy. A 1 year screening mammogram is recommended. Based on the Tyrer Cuzick model (a risk assessment model) the patient's lifetime risk is 10.6% and her 10 year risk is 2.7%. According to the ACR, ACS, and NCCN guidelines, an annual breast MRI exam along with mammogram is recommended if the patient's lifetime risk is 20% or greater. This exam was interpreted at Station ID: [id number]. NOTE: For mammograms, a report in lay terms will be sent to the patient. Approximately 15% of breast malignancies will not be visualized mammographically. In the management of a palpable breast mass, a negative mammogram must not discourage biopsy of a clinically suspicious lesion. Electronically Signed By: Jamir almaguer/annabel:02/18/2023 08:04:46 letter sent: Normal Exam ACR BI-RADS Category 1: Negative 3341F
== END ==
PROVIDERS: Family Provider Internal Medicine; PCP Internal Medicine; Referring Provider Internal Medicine; Visit Provider Internal Medicine
DX: Z13.21 Encounter for screening for nutritional disorder (principal); Z80.3 Family history of malignant neoplasm of breast
CPT/HCPCS: 77063; 77067

== ENCOUNTER 2023-07-19 01:03 | Emergency (ER) | payer OTHER, SELFPAY ==
[2023-07-19] VITALS (8 sets, daily range): BP systolic 108–175; BP diastolic 61–93; PULSE 58–82; RESP 12–22; TEMP 36.7; O2SAT 94–100; BMI 44.2
--- NOTE | 2023-07-19 01:16 | DI.CT.S_ITS ---
PROCEDURE: CT ANGIO HEAD AND NECK INDICATIONS: severe vertigo suddenly TECHNIQUE: After the administration of intravenous contrast, 1 mm thick sections acquired from the aortic arch through the [place]. 3-dimensional wgwuvlb-eodtwvngo-tgeuucodha (MIP) and/or volume rendering reformats were acquired of the central intracranial vasculature and neck separately. For radiation dose reduction, the following was used: automated exposure control, adjustment of mA and/or kV according to patient size. COMPARISON: None. FINDINGS: Image quality: Diagnostic. BRAIN: CSF spaces: Ventricles are normal in size and shape. Basal cisterns are patent. No extra-axial fluid collections. Brain: No significant abnormality of the brain can be seen. Skull and face: Calvarium and facial bones appear intact, without suspicious lesions. Orbits appear normal. Sinuses: Sinuses and mastoids are clear. HEAD CT ANGIOGRAPHY: Anterior circulation: Intracranial internal carotid arteries are normal in size and flow. Mild atherosclerotic calcifications. The flow within the paired anterior cerebral arteries is normal and symmetric. The flow within the middle cerebral arteries is normal and symmetric. The anterior communicating artery is seen. No aneurysms are seen. Posterior circulation: Visualized portions of the vertebral arteries demonstrate normal caliber, and join to form a normal appearing basilar artery. Flow within the posterior cerebral arteries is normal and symmetric. No aneurysms are seen. NECK CT ANGIOGRAPHY: Carotid system: The great vessels demonstrate a conventional anatomy as they arise from the aortic arch. The origins of the common carotid arteries appear patent. The common carotid arteries demonstrate normal caliber and courses. The bifurcation regions are both widely patent. The internal carotid arteries demonstrate normal calibers and courses. Posterior circulation: The origins of the vertebral arteries both appear widely patent. The more superior extracranial portions of both vertebral arteries also demonstrate normal courses and calibers. They join to form a normal appearing basilar artery. Soft tissues: Visualized neck soft tissues demonstrate no suspicious abnormalities. Bones: No suspicious bony lesions. Visualized cervical spine appears normally aligned. IMPRESSION: Negative CT angiogram of the intracranial and neck arterial vasculature without occlusion, high-grade stenosis, dissection, or aneurysm. No significant discrepancy with the public welfare worker radiology preliminary report. Any quantitative measurements of stenosis were performed using NASCET criteria. Dictated by: Rony Acosta M.D. on 07/19/2023 at 8:18 Approved by: Rony Acosta M.D. on 07/19/2023 at 8:26
--- NOTE | 2023-07-19 01:18 | ED_ITS ---
HPI - Dizziness General Chief Complaint: Dizziness Stated Complaint: VERTIGO Time Seen by Provider: 07/19/23 01:13 Source: patient Mode of arrival: Wheelchair History of Present Illness HPI Narrative: Patient is a 53-year-old female history of hypertension and vertigo presenting today with sudden onset of pretty severe vertigo. is at bedside reports it started roughly around 11 30 she can not find the true position of comfortab le lying on her side does help. She feels very nauseous she is unable to ambulate secondary to severe dizziness. Reports that she was previously admitted to hospital many years ago for severe vertigo where she had an MRI. She is not taken anything at home she is not had a severe attack like this in awhile. She denies any chest pain or palpitations. She had a normal day today and felt well. Related Data Previous Rx's Medication Instructions Recorded albuterol sulfate 90 mcg/actuation 2 puff inhalation Q4-6H PRN 06/15/20 aerosol inhaler bronchospasm #8.5 grams benzonatate 100 mg capsule 100 mg PO BID PRN cough #30 caps 06/15/20 (Luis Alfaro) lisinopril 20 mg tablet 20 mg PO DAILY #30 tabs 04/30/22 meclizine 25 mg tablet 25 mg PO TID PRN dizziness #20 tabs 07/19/23 ondansetron 4 mg disintegrating 4 mg PO Q8H PRN nausea and 07/19/23 tablet vomiting #10 tabs Allergies Allergy/AdvReac Type Severity Reaction Status Date / Time No Known Drug Allergies Allergy Verified 06/17/22 14:51 Review of Systems Review of Systems ROS Unobtainable: All systems reviewed & are unremarkable except as noted in HPI and below Patient History Medical History Essential hypertension Gilbert syndrome Menopausal syndrome Surgical History Status post delivery Social History Smoking Status: Never smoker Smoking Status: Never smoker alcohol intake frequency: 0-2 drinks per day Substance Use Type: does not use Exam Initial Vital Signs Initial Vital Signs: Vital Signs Pulse Rate 77 07/19/23 01:10 Pulse Oximetry 98 07/19/23 01:10 GENERAL: Alert 53-year-old female appears to not feel well. And in [no acute] distress. HEENT: Head atraumatic,EOMI, pupils reactive, face symmetric, [moist] mucous membranes CARDIOVASCULAR: Regular rate and rhythm without murmurs, rubs or gallops. RESPIRATORY: Breath sounds equal bilaterally, no wheezes rales or rhonchi. ABDOMEN: Soft, nontender. Normoactive bowel sounds all 4 quadrants. No guarding or rebound. EXTREMITIES: Normal range of motion, no clubbing or edema. Neurovascularly intact NEUROLOGICAL: Alert and oriented x4.Normal gait and speech. Cranial nerves II through XII grossly intact. [Good [id number], good [id number]-pqop, strength equal bilaterally, no dysarthria or aphasia, sensation in tact to soft touch bilaterally, no visual changes, no facial droop] SKIN: Warm, dry, no laceration, no petechiae, no rashes or lesions. Course Orders Ordered: ED Orders 07/19/23 01:16 CT angio head and neck Stat EKG-12 Lead Stat 07/19/23 01:23 CBC Auto Diff [Complete Blood Count AUTO DIFF] Stat CMP [Comprehensive Metabolic Panel] Stat Discontinued Medications Lorazepam (Lorazepam 2 Mg/Ml Inj) 0.5 mg IV NOW ONE Stop: 07/19/23 01:38 Last Admin: 07/19/23 01:45 Dose: 0.5 mg Documented By: MALIA Meclizine HCl (Meclizine Hcl 12.5 Mg Tablet) 25 mg PO NOW ONE Stop: 07/19/23 01:17 Last Admin: 07/19/23 01:32 Dose: 25 mg Documented By: MALIA Ondansetron HCl (Ondansetron 4 Mg/2 Ml Inj) 4 mg IV NOW ONE Stop: 07/19/23 01:17 Last Admin: 07/19/23 01:26 Dose: 4 mg Documented By: MALIA Vital Signs Vital signs: Vital Signs - 8 hr 07/19/23 01:13 07/19/23 01:10 07/19/23 01:15 Temperature 98.1 F Pulse Rate 74 77 Respiratory Rate 16 Blood Pressure 166/93 H 166/93 H Pulse Oximetry 98 98 Oxygen Delivery Method Room Air 07/19/23 01:15 07/19/23 01:30 07/19/23 01:30 Temperature Pulse Rate 82 82 Respiratory Rate 18 22 Blood Pressure 175/64 H Pulse Oximetry 99 100 Oxygen Delivery Method 07/19/23 02:08 07/19/23 02:10 07/19/23 02:10 Temperature Pulse Rate 70 60 Respiratory Rate 16 12 Blood Pressure 132/61 Pulse Oximetry 95 97 Oxygen Delivery Method 07/19/23 02:30 07/19/23 02:30 07/19/23 03:00 Temperature Pulse Rate 58 L Respiratory Rate 16 Blood Pressure 115/73 108/63 Pulse Oximetry 94 Oxygen Delivery Method 07/19/23 03:00 Temperature Pulse Rate 65 Respiratory Rate 18 Blood Pressure Pulse Oximetry 98 Oxygen Delivery Method MDM - Dizziness Lab Data 07/19/23 01:23 07/19/23 01:23 Labs: Lab Results 07/19/23 07/19/23 Range/Units 01: 01:23 WBC 5.8 (4.5-11.0) X10^3/uL RBC 5.09 (4.0-5.2) X10^6/uL Hgb 14.9 (12.0-16.0) g/dL Hct 43.6 (36-46) % MCV 85.7 (80-100) fL MCH 29.3 (26-34) PG MCHC 34.2 (30-36) % RDW 14.0 (11.6-14.8) % Plt Count 226 (150-400) X10^3/uL Neut % (Auto) 57.9 (50-75) % Lymph % (Auto) 29.5 (25-40) % [place] % (Auto) 9.9 (3-14) % Eos % (Auto) 1.6 L (2-4) % Baso % (Auto) 1.1 (0-2) % Neut # (Auto) 3300 (3057-5280) /uL Lymph # (Auto) 1700 (5189-1717) /uL [place] # (Auto) 600 (0-900) /uL Eos # (Auto) 100 (0-450) /uL Baso # (Auto) 100 (0-100) /uL Sodium 136 L (137-145) mmol/L Potassium 4.4 (3.4-5.1) mmol/L Chloride 103 (98-107) mmol/L Carbon Dioxide 26 (22-32) mmol/L BUN 19 H (7-17) mg/dL Creatinine 0.83 (0.52-1.04) mg/dL Estimated GFR > 60 (>60) mL/min BUN/Creatinine Ratio 22.9 H (6-22) Glucose 116 H (70-100) mg/dL Calcium 9.5 (8.4-10.2) mg/dL Total Bilirubin 1.3 (0.2-1.3) mg/dL AST 25 (14-36) IU/L ALT 32 (<35) IU/L Alkaline Phosphatase 63 (38-126) U/L Total Protein 7.7 (6.3-8.2) g/dL Albumin 4.2 (3.5-5.0) g/dL Globulin 3.5 (1.7-4.1) g/dL Albumin/Globulin Ratio 1.2 (1.0-2.8) Imaging Data CTA - brain/neck: Radiologist's Impression: Preliminary report no significant stenosis or vascular occlusion in the neck ECG Data Interpretation: Normal sinus rhythm rate 72 NH interval 176 QRS [address] changes MDM Narrative Medical decision making narrative: Patient 53-year-old female presents today with sudden onset of dizziness woke her from her sleep. She feels intense pressure in her head nauseated unable to walk. She has a history of vertigo has a history of prior episode to this. She is given meclizine and Ativan along with Zofran. Symptoms improve radically. She is able to stand and ambulate. Blood work has been reviewed in his overall reassuring without clinical significance. CT angio does not show any stenosis or posterior cerebellar infarct. At this time patient feels ready and able to go home. I suspect a vertigo. Patient has history of vertigo and this presented similarly. Also has completely resolved. Discharge Plan Departure Patient Disposition: Home Clinical Impression: Benign paroxysmal positional vertigo Instructions: DI for Vertigo Activity Restrictions/Additional Instructions: *You have been diagnosed with benign paroxysmal positional vertigo *What to do: At this time if this continues you may need to see ENT or have an MRI. However I suspect that this is vertigo similar to you had previously please go home and rest *Continue to take medications as directed Meclizine 25-50 mg 3 times a day if needed for dizziness Zofran 4 mg every 8 hours if needed for nausea or vomiting *Follow up with your primary care provider in 2-3 days or call [phone] *Return to ER if you should have persistent dizziness inability keep liquids down numbness tingling weakness or any new, worsening or concerning symptoms Prescriptions: New meclizine 25 mg tablet 25 mg PO TID PRN (Reason: dizziness) Qty: 20 0RF ondansetron 4 mg tablet,disintegrating 4 mg PO Q8H PRN (Reason: nausea and vomiting) Qty: 10 0RF No Action benzonatate [Tessalon Perles] 100 mg capsule 100 mg PO BID PRN (Reason: cough) Qty: 30 0RF albuterol sulfate 90 mcg/actuation HFA aerosol inhaler 2 puff INHALATION Q4-6H PRN (Reason: bronchospasm) Qty: 8.5 0RF lisinopril 20 mg tablet 20 mg PO DAILY Qty: 30 0RF Referrals: Francisco Tran MD [Primary Care Provider] - Stand Alone Forms: Patient Portal/API
[2023-07-19] MEDS: ONDANSETRON 4 MG/2 ML INJ IV (01:26)
[2023-07-19] MEDS: MECLIZINE HCL 12.5 MG TABLET 25 MG PO (01:32)
[2023-07-19 01:36] LABS: Add Manual Diff / Slide Review NO; Basophils Absolute Auto 100 /uL (0-100); Basophils Percent Auto 1.1 % (0-2); Eosinophils Absolute Auto 100 /uL (0-450); Eosinophils Percent Auto 1.6 % (2-4); Hematocrit 43.6 % (36-46); Hemoglobin 14.9 g/dL (12.0-16.0); Lymphocytes Absolute Auto 1700 /uL (1100-4500); Lymphocytes Percent Auto 29.5 % (25-40); Mean Corpuscular HGB Conc 34.2 % (30-36); Mean Corpuscular Hemoglobin 29.3 PG (26-34); Mean Corpuscular Volume 85.7 fL (80-100); Monocytes Absolute Auto 600 /uL (0-900); Monocytes Percent Auto 9.9 % (3-14); Neutrophils Absolute Auto 3300 /uL (1500-7000); Neutrophils Percent Auto 57.9 % (50-75); Platelet Count 226 X10^3/uL (150-400); Red Blood Cell Count 5.09 X10^6/uL (4.0-5.2); White Blood Cell Count 5.8 X10^3/uL (4.5-11.0)
[2023-07-19 01:44] LABS: Alanine Aminotransferase 32 IU/L (<35); Albumin 4.2 g/dL (3.5-5.0); Albumin Globulin Ratio 1.2 (1.0-2.8); Alkaline Phosphatase 63 U/L (38-126); Aspartate Aminotransferase 25 IU/L (14-36); BUN Creatinine Ratio 22.9 (6-22); Bilirubin Total 1.3 mg/dL (0.2-1.3); Blood Urea Nitrogen 19 mg/dL (7-17); Calcium 9.5 mg/dL (8.4-10.2); Carbon Dioxide 26 mmol/L (22-32); Chloride 103 mmol/L (98-107); Estimated Glomerular Filt Rate > 60 mL/min (>60); Globulin 3.5 g/dL (1.7-4.1); Glucose 116 mg/dL (70-100); HEMOLYSIS < 15 (0-50); Potassium 4.4 mmol/L (3.4-5.1); Sodium 136 mmol/L (137-145); Total Protein 7.7 g/dL (6.3-8.2)
[2023-07-19] MEDS: LORazepam 2 MG/ML INJ 0.5 MG IV (01:45)
== END 2023-07-19 03:24 | disposition home or self-care (01) ==
PROVIDERS: Emergency Provider Emergency Medicine; Family Provider Internal Medicine; PCP Internal Medicine
DX: H81.10 Benign paroxysmal vertigo, unspecified ear (principal); Z79.899 Other long term (current) drug therapy
CPT/HCPCS: 36415; 70496; 70498; 80053; 85025; 93005; 96374; 96375; 99284; J2060; J2405; Q9967

== ENCOUNTER → 2024-09-08 08:41 | Outpatient (CLI) | payer OTHER, SELFPAY ==
[2024-09-08 09:42] LABS: Add Manual Diff / Slide Review NO; Basophils Absolute Auto 0 /uL (0-100); Basophils Percent Auto 0.6 % (0-2); Eosinophils Absolute Auto 200 /uL (0-450); Eosinophils Percent Auto 3.5 % (2-4); Hematocrit 43.3 % (36-46); Hemoglobin 14.7 g/dL (12.0-16.0); Lymphocytes Absolute Auto 1600 /uL (1100-4500); Lymphocytes Percent Auto 34.3 % (25-40); Mean Corpuscular HGB Conc 33.8 % (30-36); Mean Corpuscular Hemoglobin 29.6 PG (26-34); Mean Corpuscular Volume 87.5 fL (80-100); Monocytes Absolute Auto 500 /uL (0-900); Monocytes Percent Auto 9.9 % (3-14); Neutrophils Absolute Auto 2500 /uL (1500-7000); Neutrophils Percent Auto 51.7 % (50-75); Platelet Count 204 X10^3/uL (150-400); Red Blood Cell Count 4.95 X10^6/uL (4.0-5.2); Red Cell Distribution Width 14.2 % (11.6-14.8); White Blood Cell Count 4.8 X10^3/uL (4.5-11.0)
[2024-09-08 10:02] LABS: Alanine Aminotransferase 34 IU/L (<35); Albumin 4.1 g/dL (3.5-5.0); Albumin Globulin Ratio 1.4 (1.0-2.8); Alkaline Phosphatase 59 U/L (38-126); Aspartate Aminotransferase 31 IU/L (14-36); BUN Creatinine Ratio 19.5 (6-22); Bilirubin Total 1.4 mg/dL (0.2-1.3); Blood Urea Nitrogen 16 mg/dL (7-17); Carbon Dioxide 24 mmol/L (22-32); Chloride 107 mmol/L (98-107); Cholesterol 178 mg/dL (140-199); Estimated Glomerular Filt Rate > 60 mL/min (>60); Globulin 2.9 g/dL (1.7-4.1); Glucose 103 mg/dL (70-100); HDL Cholesterol 63 mg/dL (40-60); HEMOLYSIS < 15 (0-50); LDL Cholesterol Calculated 103 mg/dL (<100); Sodium 137 mmol/L (137-145); Triglycerides 58 mg/dL (35-150)
[2024-09-08 10:28] LABS: TSH w/ Reflex to FT4 2.17 uIU/mL (0.47-4.68)
[2024-09-08 10:30] LABS: Hemoglobin A1C% w Est Avg Glu 5.6 % (4.0-6.0)
== END ==
PROVIDERS: Family Provider Internal Medicine; PCP Internal Medicine; Referring Provider Internal Medicine; Visit Provider Internal Medicine
DX: I10 Essential (primary) hypertension (principal); N95.1 Menopausal and female climacteric states; E80.4 Gilbert syndrome; D64.9 Anemia, unspecified; E78.5 Hyperlipidemia, unspecified; R73.9 Hyperglycemia, unspecified; F41.9 Anxiety disorder, unspecified; F32.A Depression, unspecified
CPT/HCPCS: 36415; 80053; 80061; 83036; 84443; 85025

== ENCOUNTER → 2024-09-21 15:29 | Outpatient (CLI) | payer OTHER, SELFPAY ==
--- NOTE | 2024-09-21 15:30 | DI.MG.S_ITS ---
BILATERAL DIGITAL SCREENING MAMMOGRAM 3D/2D WITH CAD: 09/21/2024 CLINICAL: Routine screening. Family history of breast cancer. Comparison is made to exams dated: 02/17/2023 mammogram, 02/12/2022 mammogram, and 12/31/2019 mammogram - [facility]. There are scattered areas of fibroglandular density (category b / 25%-50% glandular tissue). Current study was also evaluated with a Computer Aided Detection (CAD) system. No significant masses, calcifications, or other findings are seen in either breast. There has been no significant interval change. IMPRESSION: NEGATIVE There is no mammographic evidence of malignancy. A 1 year screening mammogram is recommended. Based on the Tyrer Cuzick model (a risk assessment model) the patient's lifetime risk is 10.4% and her 10 year risk is 2.9%. According to the ACR, ACS, and NCCN guidelines, an annual breast MRI exam along with mammogram is recommended if the patient's lifetime risk is 20% or greater. This exam was interpreted at Station ID: [id number]. NOTE: For mammograms, a report in lay terms will be sent to the patient. Approximately 15% of breast malignancies will not be visualized mammographically. In the management of a palpable breast mass, a negative mammogram must not discourage biopsy of a clinically suspicious lesion. Electronically Signed By: Tor holman/annabel:09/21/2024 16:36:57 letter sent: Normal Exam ACR BI-RADS Category 1: Negative
== END ==
PROVIDERS: Family Provider Internal Medicine; PCP Internal Medicine; Referring Provider Internal Medicine; Visit Provider Internal Medicine
DX: Z12.31 Encounter for screening mammogram for malignant neoplasm of breast (principal); Z80.3 Family history of malignant neoplasm of breast
CPT/HCPCS: 77063; 77067

== ENCOUNTER 2024-09-28 06:26 | Day surgery (SDC) | payer OTHER, SELFPAY ==
[2024-09-28 07:19] VITALS: BP 123/85; PULSE 73; RESP 20; TEMP 36.2; O2SAT 96
--- NOTE | 2024-09-28 07:36 | PM.HP.1 ---
History of Present Illness History of Present Illness Date Patient Seen: 09/28/24 Time Patient Seen: 07:36 Chief complaint: Colonoscopy w/poss bx Narrative: 54-year-old white female who underwent colonoscopy 7 years ago and was found to have polyps, she has a family history of her father, who is still alive, diagnosed with colon cancer in his 60s. No other changes in or bowel habits. [facility] Medical History (Updated 09/28/24 @ 07:38 by José Lara MD) Family history of colon cancer Anxiety with depression Morbid obesity Gilbert syndrome Essential hypertension Menopausal syndrome Surgical History Status post delivery Social History Smoking Status: Never smoker Meds Home Medications and Allergies Home Medications Medication Instructions Recorded Confirmed Type citalopram 20 mg tablet 20 mg PO DAILY #90 tabs 09/06/24 09/28/24 Rx lisinopril 20 mg tablet 20 mg PO DAILY #90 tabs 09/06/24 09/28/24 Rx Allergies Allergy/AdvReac Type Severity Reaction Status Date / Time No Known Drug Allergies Allergy Verified 09/28/24 07:15 Review of Systems Review of Systems ROS: Yes All systems reviewed with the patient and are negative except as otherwise documented Exam Vital Signs (past 8 hours): - 09/28/24 07:19 Temperature 97.2 F L Pulse Rate 73 Respiratory Rate 20 Blood Pressure 123/85 Pulse Oximetry 96 Oxygen Delivery Method Room Air Oxygen Delivery Method Room Air Narrative Exam Narrative: Gen: NAD, sitting comfortably in bed, appears well HEENT: Sclera are anicteric, head is normocephalic and atraumatic, trachea is midline. CV: RRR, no JVD Resp: clear to auscultation bilaterally, equal chest wall movement bilaterally Abd: soft, nontender, normoactive bowel sounds Ext: no edema, full range of motion Neuro: Cranial nerves II-XII grossly intact, no focal deficits Skin: No erythema or ecchymosis Assessment & Plan Assessment and plan (1) Personal history of colonic polyps: Status: Acute (2) Family history of colon cancer: Status: Acute Assessment & Plan narrative: Patient presents for initial screening colonoscopy Risks, benefits, alternatives to colonoscopy explained, including but not limited to bowel perforation or other serious complication requiring surgery at less than 1 in 5000 colonoscopies, abdominal pain, cramping or bleeding and less than 1% of colonoscopies, and the chances that we find a diagnosis that would require further intervention of about 2%. Patient agrees to proceed. Time-Based Coding :: [TOTAL MINUTES] spent with patient and on the chart (including review of chart, obtaining history, exam, reviewing outside data, placing orders, documenting exam and treatment plan, and counseling patient) on [DATE].
--- NOTE | 2024-09-28 07:38 | P.DS_ITS ---
History of Present Illness History of Present Illness Chief complaint: Colonoscopy w/poss bx Narrative: 54-year-old white female who underwent colonoscopy 7 years ago and was found to have polyps, she has a family history of her father, who is still alive, diagnosed with colon cancer in his 60s. No other changes in or bowel habits. Discharge Providers Provider Primary care physician: Francisco Tran MD Discharge provider: José Lara MD Exam Vital Signs (past 8 hours): - 09/28/24 07:19 Temperature 97.2 F L Pulse Rate 73 Respiratory Rate 20 Blood Pressure 123/85 Pulse Oximetry 96 Oxygen Delivery Method Room Air Oxygen Delivery Method Room Air [facility] Medical History (Updated 09/28/24 @ 07:38 by José Lara MD) Family history of colon cancer Anxiety with depression Morbid obesity Gilbert syndrome Essential hypertension Menopausal syndrome Surgical History Status post delivery Social History Smoking Status: Never smoker Discharge Plan Discharge orders & Medications Discharge Orders: Discharge (Order); Ordered 09/28/24 Ordered By: José Lara Prescriptions: No Action lisinopril 20 mg tablet 20 mg PO DAILY Qty: 90 3RF citalopram 20 mg tablet 20 mg PO DAILY Qty: 90 3RF Follow up/Referrals: Francisco Tran MD [Primary Care Provider] - Discharge Data Primary Care Provider: Francisco Tran Attending Provider: José Lara
--- NOTE | 2024-09-28 08:00 | PM.OP.COLON ---
Operative Date/Time/Diagnoses Date of procedure: 09/28/24 Time of procedure: 08:00 Pre-op diagnosis: Personal history of polyps Post-op diagnosis: other (Diverticulosis) Procedure & Clinicians Study performed: Colonoscopy Same procedure as scheduled: Yes Indications: Personal history of polyps, family history colon cancer Surgeon: José Lara Procedure Notes SCOAP/Timeout: Performed Procedure in detail: Time-out was performed. Mac was induced. Patient was placed in left lateral decubitus position. The perineum was inspected without any gross abnormality. Lubricated pediatric colonoscope was inserted and advanced to the cecum. The terminal ileum was intubated. The colonoscope was withdrawn slowly inspecting the circumference of the colon. Patient had small diverticulosis throughout the colon. Very small polyps may have been missed, prep quality was adequate. Retroflexed view of the rectum showed small, non prolapsed nonbleeding internal hemorrhoids. The scope was withdrawn the patient was taken to PACU in good condition. Scope withdrawal time: 10 Sedation minutes: 15 Findings: divertiulosis and internal hemorrhoids Specimen(s): none sent Complications: none Impression: Normal colonoscopy Post-procedure Recommendations: Colonoscopy in 10 years and High fiber diet Follow up: as needed Disposition: PACU
[2024-09-28 08:03] VITALS: BP 112/63; PULSE 78; RESP 15; TEMP 36.6; O2SAT 94
[2024-09-28 08:04] VITALS: BP 112/63; PULSE 78; RESP 21; TEMP 36.4; O2SAT 95
[2024-09-28 08:08] VITALS: BP 131/64; PULSE 70; RESP 14; O2SAT 94
[2024-09-28 08:13] VITALS: BP 121/62; PULSE 73; RESP 14; O2SAT 94
[2024-09-28 08:18] VITALS: BP 115/64; PULSE 68; RESP 12; TEMP 36.1; O2SAT 96
== END 2024-09-28 08:34 | disposition home or self-care (01) ==
PROVIDERS: Family Provider Internal Medicine; PCP Internal Medicine; Referring Provider Surgery; Visit Provider Surgery
PROC: 0DJD8ZZ Inspection of Lower Intestinal Tract, Via Natural or Artificial Opening Endoscopic (ICD-10-PCS; CPT 45378; principal; 2024-09-28 07:45)
DX: Z12.11 Encounter for screening for malignant neoplasm of colon (principal); Z86.0100 Personal history of colon polyps, unspecified; K57.30 Diverticulosis of large intestine without perforation or abscess without bleeding; K64.8 Other hemorrhoids
CPT/HCPCS: 45378; 81025; J2405; J2704